=== PATIENT | female | born 1945 | race Caucasian/White ===

== ENCOUNTER 2024-09-16 18:18 | Emergency (ER) | payer OTHER, MEDICARE ==
[2024-09-16 18:30] VITALS: RESP 18; TEMP 98
[2024-09-16] MEDS ORDERED: ACETAMINOPHEN TAB 325 MG TAB PO PRN (18:47)
[2024-09-16] MEDS: ACETAMINOPHEN TAB 325 MG TAB PO PRN (19:05)
[2024-09-16] MEDS: SODIUM CHLORIDE 0.9% 1,000 ML IV STA (19:06)
--- NOTE | 2024-09-16 19:08 | XR ---
EXAMINATION TYPE: XR pelvis AP view DATE OF EXAM: 09/16/2024 7:00 PM COMPARISON: None. CLINICAL INDICATION: Female, 79 years old with history of fall, pain TECHNIQUE: AP view(s) obtained. FINDINGS: Femoral heads articulate with the acetabulum. Symphysis pubis and sacroiliac joints are normal. Brii l bowel gas is present. Catheter appears to be present No acute fractures are evident IMPRESSION: 1. No acute posttraumatic changes within the [id number], , 09/16/2024 7:05 PM
[2024-09-16 19:17] LABS: Basophils % (A) 0 %; Eosinophils % (A) 0 %; HGB 7.3 gm/dL (11.4-16.0); Hypochromasia Moderate; Lymphocytes # (A) 0.5 k/uL (1.0-4.8); Lymphocytes % (A) 6 %; MCH 30.7 pg (25.0-35.0); MCHC 30.5 g/dL (31.0-37.0); MCV 100.4 fL (80.0-100.0); Macrocytosis Slight; Mean Platelet Volume 8.6; Monocytes # (A) 0.6 k/uL (0-1.0); Monocytes % (A) 6 %; Neutrophils # (A) 8.6 k/uL (1.3-7.7); Neutrophils % (A) 86 %; Platelet Count 268 k/uL (150-450); RBC 2.39 m/uL (3.80-5.40); RDW 15.8 % (11.5-15.5); WBC 9.9 k/uL (3.8-10.6)
[2024-09-16 19:30] LABS: INR 1.1 (<1.2); Partial Thromboplastin Time 22.9 sec (22.0-30.0); Prothrombin Time 12.2 sec (10.0-12.5)
[2024-09-16 19:38] LABS: ALT 16 U/L (4-34); AST 20 U/L (14-36); African American GFR (CKD) 67 (>60 ml/min/1.73 sqM); Albumin 2.2 g/dL (3.5-5.0); Alkaline Phosphatase 93 U/L (38-126); Anion Gap 1 mmol/L; Blood Urea Nitrogen 34 mg/dL (7-17); Calcium 7.9 mg/dL (8.4-10.2); Carbon Dioxide 33 mmol/L (22-30); Chloride 103 mmol/L (98-107); Glucose 107 mg/dL (74-99); Non-African American GFR(CKD) 58 (>60 ml/min/1.73 sqM); Potassium 3.8 mmol/L (3.5-5.1); Sodium 137 mmol/L (137-145); Total Bilirubin 0.2 mg/dL (0.2-1.3)
--- NOTE | 2024-09-16 19:41 | ED ---
General Adult HPI - General Chief complaint: Fall Stated complaint: Fall R femurfracture Time Seen by Provider: 09/16/24 18:38 Source: patient, EMS, RN notes reviewed, old records reviewed Mode of arrival: EMS Limitations: no limitations - History of Present Illness Initial comments: Patient is a 79-year-old female who was transferred here from [facility] for a distal right femur comminuted fracture of the femoral shaft. Just proximal to the femoral condyles. Patient also found to be anemic there however patient is not on blood thinners. Patient was a fall. Did not hit her head. Is not on blood thinners. Did not lose consciousness. Only injury was the right knee. I will repeat x-rays just to the pelvis and chest as this was not done. She has no other acute complaints. Was transferred here for orthopedic evaluation. - Related Data Allergies Allergy/AdvReac Type Severity Reaction Status Date / Time codeine Allergy Unknown Verified 09/16/24 18:30 Review of Systems ROS Statement: Those systems with pertinent positive or pertinent negative responses have been documented in the HPI. Review of Systems: CONST: Denies fever EYES: Denies blurry vision ENT: Denies nasal congestion C/V: Denies Chest pain RESP: Denies shortness of breath GI: Denies abdominal pain : Denies dysuria SKIN: Denies rash. MSK: Endorses right knee pain NEURO: Denies headache ROS Other: All systems not noted in ROS Statement are negative. Past Medical History Past Medical History: Heart Failure, COPD, Diabetes Mellitus, Thyroid Disorder History of Any Multi-Drug Resistant Organisms: None Reported Past Surgical History: Bariatric Surgery, Cholecystectomy Additional Past Surgical History / Comment(s): gastric bypass Past Psychological History: No Psychological Hx Reported Smoking Status: Never smoker Past Alcohol Use History: None Reported Past Drug Use History: None Reported General Exam - General Exam Comments Initial Comments: General: Appears in no acute distress. HEAD: Normal with no signs of head trauma. Negative Perry sign. Negative raccoon eyes. EYES: PERRLA, EOMI, conjunctiva normal, no discharge. Pupils are 3 mm and equal bilaterally. ENT: Hearing grossly intact, normal oropharynx. RESPIRATORY: Clear breath sounds bilaterally. No wheezes, rales, or rhonchi. C/V: Regular rate and rhythm. S1 and S2 auscultated, peripheral pulses 2+ and intact throughout ABD: Abd is soft, nontender, nondistended EXT: Decreased range of motion of the right knee secondary to pain. No obvious deformity however patient has significant lower extremity edema and evaluation is limited. Neurovascular intact. Makeshift knee immobilizer in place his knee immobilizer does not appear to fit the patient's lower extremity. SKIN: No rashes or lesions observed on exposed skin. NEURO: Alert and oriented x 4. Cranial nerves II-XII intact. No focal sensory or strength deficits. GCS of 15. Limitations: no limitations Course Vital Signs 09/16/24 18:25 Temperature 98 F Pulse Rate 85 Respiratory 18 Rate Blood Pressure 101/57 O2 Sat by Pulse 95 Oximetry Medical Decision Making - Medical Decision Making Was pt. sent in by a medical professional or institution (, PA, SUPERVIS[employer], urgent care, hospital, or jail...) When possible be specific @ -Patient transferred by [facility] for evaluation for right femur fracture. Did you speak to anyone other than the patient for history (EMS, parent, family, police, friend...)? What history was obtained from this source @ -No Did you review nursing and triage notes (agree or disagree)? Why? @ -I reviewed and agree with nursing and triage notes Were old charts reviewed (outside hosp., previous admission, EMS record, old EKG, old radiological studies, urgent care reports/EKG's, jail records)? Report findings @ -Reviewed transfer paperwork. Remarkable for anemia with hemoglobin in the sevens. No prior workup here. Reviewed the images that were transferred here, which reviewed the comminuted fracture of the distal right femur proximal to the condyles Differential Diagnosis (chest pain, altered mental status, abdominal pain women, abdominal pain men, vaginal bleeding, weakness, fever, dyspnea, syncope, headache, dizziness, GI bleed, back pain, seizure, CVA, palpatations, mental health, musculoskeletal)? @ -Differential Musculoskeletal Muscular strain, contusion, ligament sprain, fracture, arthritis, septic arthritis, bursitis, cellulitis, muscle spasm, nerve compression, DVT, arterial occlusion, herpes zoster, electrolyte abnormality, tumor.... This is not meant to be in all inclusive list EKG interpreted by me (3pts min.). @ -None done X-rays interpreted by me (1pt min.). @ -Chest x-ray reveals no obvious acute cardiopulmonary process. Pelvis x-ray reveals no obvious acute injury or process. CT interpreted by me (1pt min.). @ -None done U/S interpreted by me (1pt. min.). @ -None done What testing was considered but not performed or refused? (CT, X-rays, U/S, labs)? Why? @ -None What meds were considered but not given or refused? Why? @ -None Did you discuss the management of the patient with other professionals (professionals i.e. , PA, [employer], lab, RT, psych nurse, social secretary, dredge boat engineer, teacher, electoral officer, immigration case worker)? Give summary @ -I spoke with Dr. Foster the trauma surgeon at [facility] who accepted the transfer. Accepting ER physician is Dr. Bella. Was smoking cessation discussed for >3mins.? @ -No Was critical care preformed (if so, how long)? @ -Yes, 30minutes Were there social determinants of health that impacted care today? How? (Homelessness, low income, unemployed, alcoholism, drug addiction, transportation, low edu. Level, literacy, decrease access to med. care, fdc, rehab)? @ -No Was there de-escalation of care discussed even if they declined (Discuss DNR or withdrawal of care, Hospice)? DNR status @ -No What co-morbidities impacted this encounter? (DM, HTN, Smoking, COPD, CAD, Cancer, CVA, ARF, Chemo, Hep., AIDS, mental health diagnosis, sleep apnea, mo rbid obesity)? @ -None Was patient admitted / discharged? Hospital course, mention meds given and r oute, prescriptions, significant lab abnormalities, going to OR and other pertinent info. @ -Patient presents emergency department complaining of right distal femur fracture. Was transferred here for orthopedic evaluation. Vital signs within acceptable limits. Will repeat labs as well as obtain chest and pelvis x-ray which were not done at the other facility. I did review the imaging. Vitals are within acceptable limits. I discussed the case with the on-call orthopedic physician, Dr. Shook who recommends transfer to a higher level facility for further management of the fracture. I discussed this with the patient he was in agreement this plan. Repeat labs show stable hemoglobin. No other obvious acute findings. Chest and pelvis x-ray unremarkable. No obvious injuries. We reached out to [facility] for transfer. I spoke with Dr. Foster the trauma surgeon at [facility] who accepted the transfer. Accepting ER physician is Dr. Bella. Undiagnosed new problem with uncertain prognosis? @ -No Drug Therapy requiring intensive monitoring for toxicity (Heparin, Nitro, Insulin, Cardizem)? @ -No Were any procedures done? @ -No Diagnosis/symptom? @ -Fall, right distal femur fracture Acute, or Chronic, or Acute on Chronic? @ -Acute Uncomplicated (without systemic symptoms) or Complicated (systemic symptoms)? @ -Complicated Side effects of treatment? @ -No Exacerbation, Progression, or Severe Exacerbation? @ -No Poses a threat to life or bodily function? How? (Chest pain, [place], [place], pneumonia, PE, COPD, DKA, ARF, appy, cholecystitis, CVA, Diverticulitis, Homicidal, Suicidal, threat to staff... and all critical care pts) @ -Yes - Lab Data Result diagrams: 09/16/24 19:10 09/16/24 19:10 Lab Results 09/16/24 09/16/24 09/16/24 Range/Units 19:10 19:10 19:10 WBC 9.9 (3.8-10.6) k/uL RBC 2.39 L (3.80-5.40) m/uL Hgb 7.3 L (11.4-16.0) gm/dL Hct 24.0 L (34.0-46.0) % MCV 100.4 H (80.0-100.0) fL MCH 30.7 (25.0-35.0) pg MCHC 30.5 L (31.0-37.0) g/dL RDW 15.8 H (11.5-15.5) % Plt Count 268 (150-450) k/uL MPV 8.6 Neutrophils % 86 % Lymphocytes % 6 % Monocytes % 6 % Eosinophils % 0 % Basophils % 0 % Neutrophils # 8.6 H (1.3-7.7) k/uL Lymphocytes # 0.5 L (1.0-4.8) k/uL Monocytes # 0.6 (0-1.0) k/uL Eosinophils # 0.0 (0-0.7) k/uL Basophils # 0.0 (0-0.2) k/uL Hypochromasia Moderate Macrocytosis Slight PT 12.2 (10.0-12.5) sec INR 1.1 (<1.2) APTT 22.9 (22.0-30.0) sec Sodium 137 (137-145) mmol/L Potassium 3.8 (3.5-5.1) mmol/L Chloride 103 (98-107) mmol/L Carbon Dioxide 33 H (22-30) mmol/L Anion Gap 1 mmol/L BUN 34 H (7-17) mg/dL Creatinine 0.94 (0.52-1.04) mg/dL Est GFR (CKD-EPI)AfAm 67 (>60 ml/min/1.73 sqM) Est GFR (CKD-EPI)NonAf 58 (>60 ml/min/1.73 sqM) Glucose 107 H (74-99) mg/dL Calcium 7.9 L (8.4-10.2) mg/dL Total Bilirubin 0.2 (0.2-1.3) mg/dL AST 20 (14-36) U/L ALT 16 (4-34) U/L Alkaline Phosphatase 93 (38-126) U/L Total Protein 5.0 L (6.3-8.2) g/dL Albumin 2.2 L (3.5-5.0) g/dL Critical Care Time Critical Care Time: Yes Total Critical Care Time: 30 Disposition Clinical Impression: Fall, Fracture, femur, distal Disposition: OTHER INSTITUTION NOT DEFINED Condition: Stable Referrals: None,Stated [Primary Care Provider] - 1-2 days Time of Disposition: 19:53 - Out of Hospital Transfer - Req. Specs Out of Hospital Transfer - Requested Specifics: Other Emergency Center (Transfer for escalation of care to high-level orthopedic facility for complicated distal femur fracture.)
--- NOTE | 2024-09-16 20:01 | XR ---
EXAMINATION TYPE: XR chest 2V DATE OF EXAM: 09/16/2024 7:03 PM COMPARISON: None. CLINICAL INDICATION: Female, 79 years old with history of fall, TECHNIQUE: XR chest 2V view(s) obtained. FINDINGS: The heart size is normal. The pulmonary vasculature is normal. The lungs are clear. Right diaphragm is elevated IMPRESSION: 1. No acute pulmonary process. [facility], , 09/16/2024 7:59 PM
[2024-09-16 20:12] VITALS: PULSE 81
[2024-09-16 20:44] VITALS: BP 100/62
== END 2024-09-16 20:44 | disposition other institution (70) ==
LOC: EC 18:18
DX: S72.401A Unspecified fracture of lower end of right femur, initial encounter for closed fracture (principal); Z88.5 Allergy status to narcotic agent; W01.198A Fall on same level from slipping, tripping and stumbling with subsequent striking against other object, initial encounter
CPT/HCPCS: 36415; 80053; 85025; 85610; 85730; 72170; 71046; 99291; 96360; 96361; L1830